=== PATIENT | female | born 1965 | race Caucasian/White ===

== ENCOUNTER 2020-08-25 15:53 | Outpatient (CLI) | payer OTHER, SELFPAY ==
--- NOTE | ~2020-08-25 | XR_ITS ---
EXAMINATION: XR foot LT min 3V DATE: 08/25/2020 16:20 INDICATION: Lateral left foot pain and swelling TECHNIQUE: Dorsoplantar, two oblique and lateral views of the left foot were obtained. COMPARISON: None. FINDINGS: Alignment is normal. No fracture. Mild polyarticular osteoarthritis at the first metatarsophalangeal and multiple tarsal metatarsal and interphalangeal joints. No periosteal reaction or cortical erosion s. Soft tissues at the foot are unremarkable. Multiple tiny dystrophic calcification in the soft tiss ues posterior to the distal lower leg. IMPRESSION: 1. Mild polyarticular osteoarthritis in the mid and forefoot. No acute osseous abnormality. Reviewed, dictated and finalized at location A.
== END 2020-08-25 15:54 | disposition home or self-care (01) ==
LOC: CHSIMG 15:56
PROVIDERS: PCP Family Medicine; Visit Provider Family Medicine
DX: M79.672 Pain in left foot (principal)
CPT/HCPCS: 73630

== ENCOUNTER 2021-03-28 01:58 | Day surgery (SDC) | payer BC, SELFPAY ==
[2021-03-10 09:03] VITALS: BMI 39.5
--- NOTE | 2021-03-21 14:37 | PC.NURSE ---
DATE AND TIMES REVIEWED WITH PATIENT. PATIENT DENIES ANY CHANGES SINCE LAST INTERVIEW
[2021-03-28 06:45] LABS: Glucose Point of Care 140 mg/dl (65-105)
[2021-03-28 06:46] VITALS: BP 133/88; PULSE 93; RESP 18; TEMP 36.1; O2SAT 95; BMI 40.0
[2021-03-28] MEDS: LACTATED RINGERS 1,000 ML 150 ML IV CONT (06:50)
--- NOTE | 2021-03-28 07:28 | P.PNAN_ITS ---
Anes - Initial Pre Proc Eval Procedure: Operation Date: 03/28/21 08:00 Proposed Procedures p Screening Colonoscopy - Andrei Lopez MD Date/Time: 03/28/21 07:28 Surgeon: Andrei Lopez MD Pre Op Diagnosis: neoplasm screening Patient Data Age: 56 Gender: F Height: 1.73 m Weight: 119.5 kg Last Vital Signs Temp 36.1 C L 03/28/21 06:46 Pulse 93 03/28/21 06:46 Resp 18 03/28/21 06:46 BP 133/88 03/28/21 06:46 Pulse Ox 95 03/28/21 06:46 Allergies Allergy/AdvReac Type Severity Reaction Status Date / Time No Known Allergies Allergy Verified 03/28/21 06:45 Home Medications Medication Instructions Recorded Confirmed Type furosemide 20 mg PO DAILY 03/10/21 03/28/21 History glimepiride 4 mg PO DAILY 03/10/21 03/28/21 History losartan 50 mg PO DAILY 03/10/21 03/28/21 History metformin 1,000 mg PO BID 03/10/21 03/28/21 History ropinirole 1 mg PO DAILY 03/10/21 03/28/21 History semaglutide [Rybelsus] 3 mg PO DAILY 03/10/21 03/28/21 History sitagliptin [Januvia] 100 mg PO DAILY 03/10/21 03/28/21 History tamoxifen 20 mg PO DAILY 03/10/21 03/28/21 History Laboratory Tests 03/28/21 06:43 POC Capillary Glucose 140 mg/dl H mg/dl (65-105) Patient hx anesthesia problems: none Family hx anesthesia problems: none Results Review: All pre-operative results and documents have been reviewed as part of the pre-operative evaluation. [facility] Past Medical History Medical History (Updated 03/28/21 @ 07:30 by Kirby Espino MD) Breast CA Diabetes HTN (hypertension) Morbid obesity with BMI of 40.0-44.9, adult Family History Family History (Updated 05/14/18 @ 09:23 by DOCTOR UNKNOWN) Other Diabetes mellitus Family history of arthritis Family history of malignant neoplasm Hypertension Social History Social History Smoking status: Never smoker Alcohol intake: current Substance use: never Substance use type: does not use Living arrangements: with family Spiritual care concerns: No Anes - Eval Final PreProcedure Day of Procedure 03/28/21 07:28 Patient weight: morbidly obese Heart: regular rate and rhythm Lungs: clear to auscultation and normal air movement Airway: Mallampati scale class II Neurological: alert and oriented Last oral intake: >/= 8 hours ASA classification: III Emergent: no Anesthetic plan: proceed Anesthesia type and monitoring: general GIVS Results Review: All pre-operative results and documents have been reviewed as part of the pre-operative evaluation. Informed Consent: The patient's anesthetic plan and its attendant risks and benefits were discussed with the patient/family/POA. Questions were solicited and answers provided to the satisfaction of the patient/family/POA.
--- NOTE | 2021-03-28 07:52 | PM.HPGS ---
History of Present Illness History of Present Illness Consent: Risks, benefits, and alternatives have been discussed and questions answered. Patient agrees to proceed with procedure. Chief complaint: neoplasm screening Narrative: Kika العلي is a 56 year old female here for first screening colonoscopy Review of Systems Constitutional: Constitutional: Denies headache(s) and Denies weakness Eyes: Eyes: Denies blurry vision ENT: Reports Normal hearing present, Denies headache(s) and Denies neck pain Cardiovascular: Cardiovascular: Denies chest pain and Denies dyspnea Respiratory: Respiratory: Denies dyspnea Gastrointestinal: Gastrointestinal: Reports no additional gastrointestinal complaints Genitourinary: Genitourinary: Denies dysuria Musculoskeletal: Musculoskeletal: Denies neck pain Integumentary/Breasts: Skin/Breast: Denies dry skin Neurologic: Reports Normal hearing present, Denies headache(s) and Denies weakness Psychiatric: Psychiatric: Denies anxiety Endocrine: Endocrine: Denies change in body appearance Hematologic/Lymphatic: Hematologic/Lymphatic: Denies easy bleeding Allergic/Immunologic: Allergic/Immunologic: Denies urticaria PMF Past Medical History Medical History (Updated 03/28/21 @ 07:53 by Andrei Lopez MD) Breast CA Colon cancer screening Diabetes HTN (hypertension) Morbid obesity with BMI of 40.0-44.9, adult Family History Family History (Updated 05/14/18 @ 09:23 by DOCTOR UNKNOWN) Other Diabetes mellitus Family history of arthritis Family history of malignant neoplasm Hypertension Social History Social History Smoking status: Never smoker Alcohol intake: current Substance use: never Substance use type: does not use Living arrangements: with family Spiritual care concerns: No Meds Home Medications and Allergies Home Medications Medication Instructions Recorded Confirmed Type furosemide 20 mg PO DAILY 03/10/21 03/28/21 History glimepiride 4 mg PO DAILY 03/10/21 03/28/21 History losartan 50 mg PO DAILY 03/10/21 03/28/21 History metformin 1,000 mg PO BID 03/10/21 03/28/21 History ropinirole 1 mg PO DAILY 03/10/21 03/28/21 History semaglutide [Rybelsus] 3 mg PO DAILY 03/10/21 03/28/21 History sitagliptin [Januvia] 100 mg PO DAILY 03/10/21 03/28/21 History tamoxifen 20 mg PO DAILY 03/10/21 03/28/21 History Allergies Allergy/AdvReac Type Severity Reaction Status Date / Time No Known Allergies Allergy Verified 03/28/21 06:45 Vital Signs Vital Signs - 24 hr 03/28/21 06:46 Temperature 96.9 F L Pulse Rate 93 Respiratory Rate 18 Blood Pressure 133/88 Pulse Oximetry 95 Exam Const: General: comfortable and no acute distress HENMT: General nose exam: Normal nares present Eyes: General: appearance normal, both eyes and all related structures Neck: Neck: no JVD Resp: Auscultation: clear to auscultation bilaterally Cardio: Rate: regular rate Rhythm: regular rhythm GI: Inspection: non-distended GI Palp: Yes Soft to palpation Skin: General skin exam: normal color Neuro: General: gait normal Speech: normal speech Extrem: General: normal to inspection Psych: Mental Status: mental status grossly normal Assessment and Plan Assessment and plan (1) Colon cancer screening: Code(s): Z12.11 - Encounter for screening for malignant neoplasm of colon Status: Acute Assessment and Plan: colonoscopy
[2021-03-28 08:20] VITALS: BP 105/50; PULSE 87; RESP 15; O2SAT 100
[2021-03-28 08:30] VITALS: BP 96/51; PULSE 83; RESP 16; O2SAT 100
[2021-03-28 08:40] VITALS: BP 110/65; PULSE 85; RESP 14; O2SAT 100
== END 2021-03-28 08:53 | disposition home or self-care (01) ==
PROVIDERS: PCP Family Medicine; Visit Provider Internal Medicine Gastroenterology
PROC: 0DJD8ZZ Inspection of Lower Intestinal Tract, Via Natural or Artificial Opening Endoscopic (ICD-10-PCS; CPT 45378; principal; 2021-03-28 08:00)
DX: Z12.11 Encounter for screening for malignant neoplasm of colon (principal); K63.5 Polyp of colon; K64.8 Other hemorrhoids; K64.4 Residual hemorrhoidal skin tags; I10 Essential (primary) hypertension; E11.9 Type 2 diabetes mellitus without complications; Z85.3 Personal history of malignant neoplasm of breast; E66.01 Morbid (severe) obesity due to excess calories; Z68.41 Body mass index [BMI] 40.0-44.9, adult; Z79.84 Long term (current) use of oral hypoglycemic drugs; Z79.810 Long term (current) use of selective estrogen receptor modulators (SERMs)
CPT/HCPCS: 45385; 82948; 88305; J2704; J7120

== ENCOUNTER 2021-11-24 09:39 | Outpatient (CLI) | payer BC, SELFPAY ==
--- NOTE | ~2021-11-24 | XR_ITS ---
XR elbow LT min 3V DATE: 11/24/2021 09:53 INDICATION: Left elbow pain TECHNIQUE: 4 views COMPARISON: None FINDINGS: No fracture or dislocation, periosteal reaction or bone destruction or joint effusion. IMPRESSION: Negative Reviewed, dictated and finalized at location B. IMPRESSION: Negative
== END 2021-11-24 09:40 | disposition home or self-care (01) ==
LOC: CHSIMG 09:41
PROVIDERS: PCP Family Medicine; Visit Provider Family Medicine
DX: M25.522 Pain in left elbow (principal)
CPT/HCPCS: 73080